=== PATIENT | female | born 1990 | race Caucasian/White ===

== ENCOUNTER 2019-10-04 10:06 | Emergency (ER) | payer BC ==
[2019-10-04 10:14] VITALS: BP 151/76; PULSE 76; TEMP 97.9; BMI 21.5
--- NOTE | 2019-10-04 11:07 | PDOC ---
History of Present Illness - General Chief Complaint: Lightheaded Stated Complaint: DIZZINESS History Source: Patient Exam Limitations: No Limitations - History of Present Illness Initial Comments: 10/04/19 11:03 29-year-old female no past medical history here to today complaining of dizziness and lightheadedness. Patient states she has been suffering with easy bruising dizziness and lightheadedness for over 10 years. She was previously followed by her primary doctor in [place] at that time had seen glove examiner and neurologist and work-up for her symptoms but recently moved to the [facility]. Has not had any lab work or seen by for some time. She describes feeling lightheaded going from lying to sitting or sitting to standing. But also describes a movement like or vertiginous-like component when turning her head quickly. She denies any new imbalance or focal weakness does occasionally have night sweats but denies any weight loss no recent travel bruises are mostly noted on the lower extremities however she did recently notice a bruise in her left hand and denies any trauma. States that periods are short usually lasting only 3 to 4days heavy at first but then short lived. Last period was 3 weeks ago states she is not currently . Denies any nausea or vomiting no focal weakness has had an MRI with and without contrast of her brain for this over a year ago while in [place]. Was also tested by rheumatology for lupus rheumatoid arthritis and other rheumatological conditions and states that her work-up was negative at that time they attributed her symptoms to stress denies any palpitations or chest pains. Does have occasional syncope most recently 1 month ago. Is here today because she felt the bruising was more prominent and her dizziness was more persistent and more severe than normal Past History - Past Medical History Allergies/Adverse Reactions: Allergies Allergy/AdvReac Type Severity Reaction Status Date / Time No Known Allergies Allergy Verified 10/04/19 10:07 Home Medications: Ambulatory Orders NK [No Known Home Medication] 10/04/19 COPD: No Other medical history: DENIES - Psycho Social/Smoking Cessation Hx Smoking History: Never smoked Hx Alcohol Use: Yes (OCASIONAL) Drug/Substance Use Hx: No Review of Systems - Review of Systems Constitutional: No: Chills, Diaphoresis HEENTM: No: Eye Pain Respiratory: No: Cough, Orthopnea, Shortness of Breath Cardiac (ROS): No: Chest Pain, Irregular Heart Rate ABD/GI: No: Abdominal Distended, Nausea, Abdominal cramping : No: Burning, Dysuria, Discharge Endocrine: No: Excessive Sweating, Change in Weight Hematologic/Lymphatic: Yes: Easy Bruising All Other Systems: Reviewed and Negative *Physical Exam - Vital Signs Last Vital Signs Temp Pulse Resp BP Pulse Ox 97.9 F 76 18 151/76 100 10/04/19 10:06 10/04/19 10:06 10/04/19 10:06 10/04/19 10:06 10/04/19 10:06 - Physical Exam 10/04/19 11:05 Now I called her twice she is not picking up awake alert no acute distress lungs are clear bilaterally heart is regular murmurs rubs or gallops abdomen is soft and nontender no palpable masses. Extremities are warm well perfused. Skin there is few bruises noted on the patient's lower extremity of varying stages small and circular in shape. There is a small blue issued bruise on her left hand on the dorsum. Patient has full range of motion. Neurologically she is awake alert and oriented x3 strength is 5 out of 5 all 4 extremities cranial nerves II through XII are intact the cerebellar testing is normal finger-to- nose normal alternating hand movements gait is normal. Patient has a negative [place]-Hall[place] but does have symptoms with turning her head to the right Heart Score/ECG Review #1 General ECG Interpretation: Sinus Rhythm, Normal Rate (70), Normal Intervals, No acute ischemic changes ED Treatment Course - LABORATORY CBC & Chemistry Diagram: 10/04/19 11:18 10/04/19 11:18 Medical Decision Making - Medical Decision Making 10/04/19 11:06 29-year-old female with longstanding history of easy bruising and dizziness or orthostasis. There is a vertiginous component. She has had an extensive work- up previously including rheumatology evaluation as well as neuro imaging of MRI and neurological evaluation. Currently does not have a PCP at this point will recheck labs to rule out any underlying anemia, electrolyte abnormalities, thrombocytopenia or other blood dyscrasia. Will refer her to a PCP in addition to local neurology and ear nose and throat. Due to the fact that there is a vertiginous component will treat with meclizine patient was given choice of oral versus IV hydration will choose oral hydration at this time we will also rule out as a cause of her symptoms and anemia 10/04/19 12:38 pt labs normal normal platelet count, no anemia, normal electrolytes will recommend ENT followup and neurology. given number for DR Negrete, will also given number for R followup. Discharge - Discharge Information Problems reviewed: Yes Clinical Impression/Diagnosis: Dizziness Condition: Improved Disposition: HOME - Admission No - Follow up/Referral Referrals: Arben Burks MD [Staff Physician] - Shankar Negrete MD [Staff Physician] - [facility] [Provider Group] - Patient Discharge Instructions Patient Printed Discharge Instructions: Vertigo, Orthostatic Hypotension Additional Instructions: you should follow up with a primary doctor. if you do not have one , you can follow up with the [facility]. see referral information and call to make an appointment. also you should follow up with a nuerologist and a ENT doctor. see referal for dr Burks, ENT and Dr Negrete nuerologist. - Post Discharge Activity
[2019-10-04 11:28] LABS: BASO % 0.7 % (0-2.0); HEMATOCRIT 38.5 % (32.4-45.2); HEMOGLOBIN 12.8 GM/dl (10.7-15.3); LYMPH % 22.2 % (8-40); MCH 31.5 pg (25.7-33.7); MCHC 33.4 g/dl (32.0-36.0); MEAN CELL VOLUME 94.3 fl (80-96); MEAN PLT VOLUME 9.1 fl (7.5-11.1); MONO % 17.1 % (3.8-10.2); PLATELET COUNT 187 K/MM3 (134-434); RBC 4.08 M/mm3 (3.60-5.2); RDW 12.1 % (11.6-15.6); WHITE BLOOD COUNT 4.4 K/mm3 (4.0-10.8)
[2019-10-04 11:49] LABS: INR 1.07 (0.82-1.09)
[2019-10-04 12:02] LABS: ALBUMIN 4.1 g/dl (3.4-5.0); BILIRUBIN,TOTAL 0.7 mg/dl (0.2-1); CALCIUM 9.1 mg/dl (8.5-10); CREATININE 0.6 mg/dl (0.55-1.3); POTASSIUM 4.3 mmol/L (3.5-5.1); TOT PROT 7.1 g/dl (6.4-8.2)
--- NOTE | 2019-10-05 12:43 | EKG ---
Test Reason : Blood Pressure : / mmHG Vent. Rate : 070 BPM Atrial Rate : 070 BPM P-R Int : 126 ms QRS Dur : 082 ms QT Int : 384 ms P-R-T Axes : 025 058 031 degrees QTc Int : 414 ms NORMAL SINUS RHYTHM NORMAL ECG NO PREVIOUS ECGS AVAILABLE Confirmed by ADY FARR MD ([id number]) on 10/05/2019 12:42:48 PM Referred By: SOFYA DUBON Confirmed By:ADY FARR MD
== END 2019-10-04 12:54 | disposition home or self-care (01) ==
LOC: FER 10:06
DX: R42 Dizziness and giddiness (principal)
CPT/HCPCS: 36415; 80053; 81003; 84443; 84703; 85025; 85610; 85730; 93005; 99283-25

== ENCOUNTER 2020-05-05 17:59 | Emergency (ER) | payer BC ==
[2020-05-05 18:10] VITALS: TEMP 98.7; BMI 25.4
[2020-05-05] MEDS ORDERED: SODIUM CHLORIDE 0.9% 500 ML INFUS.BAG IV ONE (18:30)
[2020-05-05] MEDS ORDERED: diazePAM 5 MG TABLET PO ONE (18:31)
[2020-05-05 19:02] LABS: HEMOGLOBIN 14.9 GM/dl (10.7-15.3); MEAN CELL VOLUME 92.7 fl (80-96); RDW 11.5 % (11.6-15.6)
[2020-05-05 19:04] LABS: BASO % 0.7 % (0-2.0); EOS % 0.5 % (0-4.5); HEMATOCRIT 43.6 % (32.4-45.2); LYMPH % 22.9 % (8-40); MCH 31.7 pg (25.7-33.7); MCHC 34.2 g/dl (32.0-36.0); MEAN PLT VOLUME 9.4 fl (7.5-11.1); MONO % 5.1 % (3.8-10.2); NEUT % 70.8 % (42.8-82.8); PLATELET COUNT 267 K/MM3 (134-434); WHITE BLOOD COUNT 7.2 K/mm3 (4.0-10.8)
--- NOTE | 2020-05-05 19:06 | PDOC ---
Documentation entered by Lillian Braun SCRIBE, acting as scribe for Kelley Delgado MD. Kelley Delgado MD: This documentation has been prepared by the scribe, Lillian Braun SCRIBE, under my direction and personally reviewed by me in its entirety. I confirm that the documentation accurately reflects all work, treatment, procedures, and medical decision making performed by me. History of Present Illness <Melissa Manrique - Last Filed: 05/05/20 20:03> - General History Source: Patient Exam Limitations: No Limitations - History of Present Illness Initial Comments: 05/05/20 18:58 The patient is a 30 year old female with no reported past medical history who presents to the emergency department with dizziness. The patient reports she was sitting on the couch about [address] [employer], when she had an episode of objective vertigo, associated with cant breath sensation and palpitations.The patient reports associated symptoms of right ear discomfort, headache and photophobia (while she was outside). The patient reports she had an episode of diarrhea this afternoon, associated with abdominal cramping. The patient reports increased stress recently because shes currently unemployed and the lease for their residence is up. The patient reports these symptoms have been going on for the past 7 months, with PCP and business services specialist sales follow up. The patient reports she had unremarkable lab works at Dr. Forbes (PCP) and business services specialist sales office, was given referral to l tacker and neurologist. Denies cards and neuro follow up secondary to insurance problems and the patient doesnt drive. The patient repor ts additional complaints of easily bruising, primarily to the lower extremities, denies injury, trauma or falls. The patient reports she had an unwitnessed syncopal episode about a week ago when she was in the shower, denies head injury. The patient reports she started drinking at age 15 and has been drinking high content alcohol daily. The patient reports she quit abruptly about a week ago, and since stopping the symptoms has increased and worsened. Denies fever, chills, SOB, weakness, N, V, bladder and bowel problems, leg swelling, No sick contacts or travel. No new changes in medications. Denies phonophobia. Denies cough, sore throat. Denies chest pain. Denies etoh withdrawal symptoms seizures. Allergies: None Past Medical History: None reported Social history: Lives with family. Denies tobacco or recreational drug use. +daily Etoh use (drinks high percentage alcohol, quit abruptly about a week ago). +vaping (hasnt used for a while) Surgical history: None reported Meds: Motrin PM (to sleep) FH: HTN, cardiac disease and stroke PMD: Dr. Lobato 05/05/20 19:05 <Kelley Delgado - Last Filed: 05/07/20 11:24> - General Chief Complaint: Lightheaded Stated Complaint: DIZZINESS Past History <Melissa Manrique - Last Filed: 05/05/20 20:03> - Medical History COPD: No - Psycho-Social/Smoking History Smoking History: Never smoked <Kelley Delgado - Last Filed: 05/07/20 11:24> - Medical History Allergies/Adverse Reactions: Allergies Allergy/AdvReac Type Severity Reaction Status Date / Time No Known Allergies Allergy Verified 05/05/20 18:10 Home Medications: Ambulatory Orders NK [No Known Home Medication] 10/04/19 Review of Systems - Review of Systems Able to Perform ROS?: Yes Comments:: 05/05/20 18:59 GENERAL/CONSTITUTIONAL: No fever or chills. No weakness. no sweats. HEAD, EYES, EARS, NOSE AND THROAT: +right ear discomfort. No change in vision or hearing. No ear pain or discharge. No sore throat or mouth pain. No difficulty swallowing. No congestion. CARDIOVASCULAR: +palpitations. +syncopal episode about a week ago. No chest pain or edema. RESPIRATORY: No SOB, cough, wheezing, or hemoptysis. GASTROINTESTINAL +diarrhea. No nausea/vomiting. No constipation. No bloody stools. GENITOURINARY: No hematuria, dysuria, frequency, urgency or other changes. MUSCULOSKELETAL: No joint or muscle swelling or pain. No decreased range of motion. No neck or back pain. SKIN: +easily bruising. No rash or changes in skin color or lesions. No wounds. NEUROLOGIC: +dizziness and headache.. alert and oriented appropriately No loss of consciousness, or change in strength/sensation. No gait instability. HEMATOLOGIC/LYMPHATIC: +easily bruising. No anemia, easy bleeding, or history of blood clots. No swollen lymph nodes ALLERGIC/IMMUNOLOGIC: No allergies PSYCH: +anxiety All other systems reviewed and negative, or as documented in HPI. 05/05/20 19:05 <Kelley Delgado - Last Filed: 05/07/20 11:24> *Physical Exam - Vital Signs Last Vital Signs Temp Pulse Resp BP Pulse Ox 98.7 F 68 18 136/93 100 05/05/20 18:02 05/05/20 19:15 05/05/20 18:02 05/05/20 19:15 05/05/20 19:15 <Melissa Manrique - Last Filed: 05/05/20 20:03> - Physical Exam 05/05/20 18:30 General: anxious, tearful, crying. HEENT: NCAT, PERRL, EOMI, clear conjunctiva, anicteric, moist mucous membranes, clear oropharynx, no oral lesions.. Neck: neck supple, FROM Resp: CTAB, normal and even respirations, no respiratory distress CVS: RRR, no murmurs, 2+ peripheral pulses throughout, no peripheral edema Abdomen: soft, NTND, no rebound or guarding. No CVAT. Back: nontender, normal inspection and ROM MSK: no edema, HINKLE x4, ROM intact. No clubbing or cyanosis. normal bulk and tone. Extremities: no calf tenderness Neuro: alert, oriented appropriately; no focal neurologic deficits Skin: +very small (dime and juarez sized) healing ecchymosis to bilateral lower extremities. warm and well perfused, cap refill <2 sec, normal color Psych: very anxious, tearful 05/05/20 19:05 <Kelley Delgado - Last Filed: 05/07/20 11:24> Heart Score/ECG Review #1 ECG reviewed & interpreted by me at: 18:55 General ECG Interpretation: Sinus Rhythm, Normal Intervals 05/05/20 19:04 EKG sinus tachycardia 101 beats per min, no interval abnormalities, narrow QRS, ST and T wave segments and morphology normal. Nonspecific T wave abnormalities <Kelley Delgado - Last Filed: 05/07/20 11:24> ED Treatment Course - LABORATORY CBC & Chemistry Diagram: 05/05/20 18:57 05/05/20 19:10 - ADDITIONAL ORDERS Additional order review: Laboratory Results 05/05/20 05/05/20 05/05/20 19:10 18:59 18:30 PT with INR INR PTT (Actin FS) Sodium 139 Potassium 3.3 L Chloride 105 Carbon Dioxide 21 Anion Gap 13 BUN 7.0 Creatinine 0.8 Est GFR (CKD-EPI)AfAm 114.66 Est GFR (CKD-EPI)NonAf 98.93 Random Glucose 109 H Calcium 10.4 H Total Bilirubin 0.8 AST 20 ALT 15 Alkaline Phosphatase 42 L Creatine Kinase 37 Troponin I < 0.03 Total Protein 8.2 Albumin 5.2 H Urine Color Yellow Urine Appearance Clear Urine pH 7.5 Urine Protein Negative Urine Glucose (UA) Negative Urine Ketones Negative Urine Blood Trace-intact Urine Nitrite Negative Urine Bilirubin Negative Urine Urobilinogen 0.2 Ur Leukocyte Esterase Negative Urine RBC 2-5 Urine WBC 0-2 Ur Transition Epith Cell Few Urine Bacteria Rare Urine HCG, Qual Negative 05/05/20 18:30 PT with INR 12.5 INR 1.12 PTT (Actin FS) 27.1 Sodium Potassium Chloride Carbon Dioxide Anion Gap BUN Creatinine Est GFR (CKD-EPI)AfAm Est GFR (CKD-EPI)NonAf Random Glucose Calcium Total Bilirubin AST ALT Alkaline Phosphatase Creatine Kinase Troponin I Total Protein Albumin Urine Color Urine Appearance Urine pH Urine Protein Urine Glucose (UA) Urine Ketones Urine Blood Urine Nitrite Urine Bilirubin Urine Urobilinogen Ur Leukocyte Esterase Urine RBC Urine WBC Ur Transition Epith Cell Urine Bacteria Urine HCG, Qual 05/05/20 18:57 RBC 4.70 MCV 92.7 MCHC 34.2 RDW 11.5 L MPV 9.4 Neutrophils % 70.8 Lymphocytes % 22.9 Monocytes % 5.1 Eosinophils % 0.5 Basophils % 0.7 - Medications Given in the ED: ED Medications Discontinued Medications Generic Name Dose Route Start Last Admin Trade Name Freq PRN Reason Stop Dose Admin Diazepam 10 mg 05/05/20 18:31 05/05/20 19:10 Valium - PO 05/05/20 18:32 10 mg ONCE ONE Administration Sodium Chloride 1,000 ml 05/05/20 18:30 05/05/20 19:10 Normal Saline - IV 05/05/20 18:31 1,000 ml ONCE ONE Administration <Melissa Manrique - Last Filed: 05/05/20 20:03> - LABORATORY CBC & Chemistry Diagram: 05/05/20 18:57 05/05/20 19:10 <DelgadoKelley - Last Filed: 05/07/20 11:24> Medical Decision Making - Medical Decision Making 05/05/20 19:04 Vital Signs Temp Pulse Resp BP Pulse Ox 98.7 F 139 H 18 160/114 H 100 05/05/20 18:02 05/05/20 18:02 05/05/20 18:02 05/05/20 18:02 05/05/20 18:02 vitals with HTN, tachy very anxious and crying has multiple complaints neuro intact. labs and lytes tsh ekg trop preg test no imaging indicated repeat VS after meds s/o to Dr Manirque pending reeval, ultimate dispo will need neuro, psych and cards followup in addition to her PMD 05/05/20 19:05 05/07/20 11:24 <SandyKelley Elizabeth - Last Filed: 05/07/20 11:24> Discharge - Discharge Information Problems reviewed: Yes - Admission No <Melissa Manrique - Last Filed: 05/05/20 20:03> - Discharge Information Problems reviewed: Yes <Kelley Delgado Sandycarlossandro - Last Filed: 05/07/20 11:24> - Discharge Information Clinical Impression/Diagnosis: Dizziness, Palpitations Condition: Stable Disposition: HOME - Follow up/Referral Referrals: Princess Lobato [Primary Care Provider] - Waldemar Nye MD [Staff Physician] - Ansley Wharton MD [Staff Physician] - Timothy Dover MD [Staff Physician] - - Patient Discharge Instructions Patient Printed Discharge Instructions: DI for Anxiety -- Adult, Yoga May Help Reduce Anxiety and Stress, DI for Palpitations Additional Instructions: Your labs did not show any concerning abnormalities. You are being given referrals for neurology, psychiatry and cardiology for follow up. Return to the ED for new or worsening symptoms. Print Language: CITIZEN OF [place] - Post Discharge Activity
[2020-05-05 19:07] LABS: HCG,QUALITATIVE URINE Negative
[2020-05-05] MEDS ORDERED: diazePAM 5 MG TABLET ONE (19:09)
[2020-05-05 19:16] VITALS: BP 136/93; PULSE 68
[2020-05-05 19:21] LABS: ALBUMIN 5.2 g/dl (3.4-5.0); BILIRUBIN,TOTAL 0.8 mg/dl (0.2-1); CALCIUM 10.4 mg/dl (8.5-10); CREATININE 0.8 mg/dl (0.55-1.3); POTASSIUM 3.3 mmol/L (3.5-5.1); TOT PROT 8.2 g/dl (6.4-8.2)
[2020-05-05 19:37] LABS: ACTIVATED PTT 27.1 SECONDS (25.2-36.5)
[2020-05-05 19:38] LABS: EPITHELIAL CELLS FEW /hpf
[2020-05-05 19:41] LABS: INR 1.12 (0.82-1.09); PROTHROMBIN TIME (PATIENT) 12.5 SEC (10.2-13.0)
--- NOTE | 2020-05-06 11:21 | EKG ---
Test Reason : Blood Pressure : / mmHG Vent. Rate : 101 BPM Atrial Rate : 101 BPM P-R Int : 128 ms QRS Dur : 072 ms QT Int : 338 ms P-R-T Axes : 071 063 050 degrees QTc Int : 438 ms SINUS TACHYCARDIA T WAVE ABNORMALITY, CONSIDER INFERIOR ISCHEMIA ABNORMAL ECG WHEN COMPARED WITH ECG OF 04-OCT-2019 11:07, NO SIGNIFICANT CHANGE WAS FOUND Confirmed by SINGH MCKEON MD ([id number]) on 05/06/2020 11:20:55 AM Referred By: KRISTI HERNANDEZ Confirmed By:SINGH MCKEON MD
== END 2020-05-05 20:29 | disposition home or self-care (01) ==
LOC: FER 17:59
DX: R42 Dizziness and giddiness (principal); R00.2 Palpitations
CPT/HCPCS: 36415; 80053; 81003; 81015; 82550; 84439; 84443; 84484; 84703; 85025; 85610; 85730; 86618; 93005; 99284-25